=== PATIENT | female | born 1970 | race African-American/Black ===

== ENCOUNTER 2016-06-10 00:34 | Emergency (ER) | payer BC, OTHER ==
[~2016-06-10] VITALS: Ht 162.6 cm; Wt 88.9 kg
[~2016-06-10 00:34] MED LIST: CIPR500T94 PO; DICL100G7 TP; DICY20TA30 PO; HYDR-2762 PO; NAPR500T PO; TRAM-29 PO
[2016-06-10 02:17] LABS: BASO % 1 % (0-3); EOS % 3 % (0-3); HEMATOCRIT 38.9 % (36.0-47.0); HEMOGLOBIN 12.7 g/dL (12.0-15.5); LYMPH # 2.3 x10^3/uL (1.0-4.8); LYMPH % 39 % (24-48); MEAN CORPUSCULAR HEMOGLOBIN 30 pg (25-35); MEAN CORPUSCULAR HGB CONC 33 g/dL (31-37); MEAN CORPUSCULAR VOLUME 92 fL (79-100); MONO % 13 % (0-9); NEUT % 44 % (31-73); PLATELET COUNT 217 x10^3/uL (140-400); RED BLOOD COUNT 4.25 x10^6/uL (3.50-5.40); RED CELL DISTRIBUTION WIDTH 13.1 % (11.5-14.5); WHITE BLOOD COUNT 5.9 x10^3/uL (4.0-11.0)
[2016-06-10 02:19] LABS: CALCIUM 9.4 mg/dL (8.5-10.1); CREATININE 0.8 mg/dL (0.6-1.0); GFR 94.3; MAGNESIUM 1.7 mg/dL (1.8-2.4); POTASSIUM 3.6 mmol/L (3.5-5.1)
[2016-06-10 03:00] VITALS: BP 112/65
--- NOTE | 2016-06-10 03:26 | PHYS DOC ---
Past Medical History Past Medical History: Arthritis Additional Past Medical Histor: Interstitial cystitis, sleep apnea, sarcodosis Past Surgical History: Cholecystectomy, Tubal ligation, Other Additional Past Surgical Histo: cystoscopy Alcohol Use: None Drug Use: None Adult General Chief Complaint Chief Complaint: SHORTNESS OF BREATH HPI HPI Patient is a 45 year old female who presents with palpitations. Patient reports for a while she's had intermittent palpitations, feeling funny in her chest. She also reports falling asleep during the day. Times. She has been diagnosed with sleep apnea was given a CPAP machine. Tonight she used CPAP machine for the first time, and was having difficulty tolerating it because of palpitations. No significant chest pain. No shortness of breath. She has not taken anything for symptoms prior to arrival. Review of Systems Review of Systems Constitutional: Denies fever or chills Eyes: Denies change in visual acuity or eye pain HENT: Denies nasal congestion or sore throat Respiratory: Denies cough or shortness of breath Cardiovascular: Palpitations. Denies chest pain GI: Denies abdominal pain, nausea, vomiting, bloody stools or diarrhea : Denies dysuria or hematuria Musculoskeletal: Denies back pain or joint pain Integument: Denies rash or skin lesions Neurologic: Denies headache, focal weakness or sensory changes Current Medications Current Medications Current Medications Medications (Trade) Dose Ordered Sig/Raul Start Time Stop Time Status Last Admin Dose Admin Magnesium Oxide (Magnesium Oxide) 400 mg 1X ONCE 06/10/16 04:00 06/10/16 04:00 DC 06/10/16 03:39 400 MG Allergies Allergies Allergies Coded Allergies Type Severity Reaction Last Updated Verified No Known Drug Allergies 10/04/15 No Physical Exam Physical Exam Constitutional: Well developed, well nourished, no acute distress, non-toxic appearance HENT: Normocephalic, atraumatic, bilateral external ears normal Eyes: EOMI, conjunctiva normal, no discharge Neck: Normal range of motion, no stridor Cardiovascular: Heart rate normal, regular rhythm, no murmur Lungs & Thorax: Bilateral breath sounds clear to auscultation Abdomen: Bowel sounds normal, soft, non-distended, no TTP Skin: Warm, dry, no erythema, no rash Extremities: No obvious deformity, no edema Neurologic: Alert and oriented X 3, no gross deficits noted Psychologic: Affect normal, judgement normal, mood normal Current Patient Data Vital Signs Vital Signs Date Time Temp Pulse Resp B/P Pulse Ox O2 Delivery O2 Flow Rate FiO2 06/10/16 03:43 06/10/16 03:00 72 16 100 Room Air 06/10/16 00:43 97.7 97.7 Lab Values Laboratory Tests Test 06/10/16 00:58 06/10/16 02:00 POC Urine HCG, Qualitative Hcg negative (Negative) White Blood Count 5.9x10^3/uL (4.0-11.0) Red Blood Count 4.25x10^6/uL (3.50-5.40) Hemoglobin 12.7g/dL (12.0-15.5) Hematocrit 38.9% (36.0-47.0) Mean Corpuscular Volume 92fL (79-100) Mean Corpuscular Hemoglobin 30pg (25-35) Mean Corpuscular Hemoglobin Concent 33g/dL (31-37) Red Cell Distribution Width 13.1% (11.5-14.5) Platelet Count 217x10^3/uL (140-400) Neutrophils (%) (Auto) 44% (31-73) Lymphocytes (%) (Auto) 39% (24-48) Monocytes (%) (Auto) 13% (0-9) H Eosinophils (%) (Auto) 3% (0-3) Basophils (%) (Auto) 1% (0-3) Neutrophils # (Auto) 2.6x10^3uL (1.8-7.7) Lymphocytes # (Auto) 2.3x10^3/uL (1.0-4.8) Monocytes # (Auto) 0.8x10^3/uL (0.0-1.1) Eosinophils # (Auto) 0.2x10^3/uL (0.0-0.7) Basophils # (Auto) 0.0x10^3/uL (0.0-0.2) Sodium Level 144mmol/L (136-145) Potassium Level 3.6mmol/L (3.5-5.1) Chloride Level 105mmol/L (98-107) Carbon Dioxide Level 31mmol/L (21-32) Anion Gap 8 (6-14) Blood Urea Nitrogen 17mg/dL (7-20) Creatinine 0.8mg/dL (0.6-1.0) Estimated GFR (Cockcroft-Gault) 94.3 Glucose Level 108mg/dL (70-99) H Calcium Level 9.4mg/dL (8.5-10.1) Magnesium Level 1.7mg/dL (1.8-2.4) L Troponin I Quantitative < 0.017ng/mL (0.000-0.055) Thyroid Stimulating Hormone (TSH) 4.087uIU/mL (0.358-3.74) H Laboratory Tests 06/10/16 02:00 Laboratory Tests 06/10/16 02:00 EKG EKG EKG (my read): sinus rhythm, rate 61, normal axis, intervals wnl, no acute ST/T changes Radiology/Procedures Radiology/Procedures CXR (my read): No significant change from prior Course & Med Decision Making Course & Med Decision Making Pertinent Labs and Imaging studies reviewed. (See chart for details) Patient is 45-year-old female who presents with palpitations after using CPAP machine for the first time. Will obtain EKG, chest x-ray, labs to evaluate. EKG and imaging results as above. Labs notable for minimally low magnesium, as well as mildly elevated TSH. Oral magnesium replacement ordered. Discussed results with patient, as well as importance of following up with PCP discussed CPAP as well as thyroid function. We'll discharge home with instructions for follow-up and return precautions. Dragon Disclaimer Dragon Disclaimer This electronic medical record was generated, in whole or in part, using a voice recognition dictation system. Departure Departure Impression: Primary Impression: Palpitations Additional Impression: Sleep apnea Disposition: 01 HOME, SELF-CARE Condition: STABLE Referrals: TABBY LOVE (PCP) Patient Instructions: Palpitations, Sleep Apnea Additional Instructions: Thank you for allowing us to provide care today in the Emergency Department. Continue to wear your CPAP machine while you are sleeping at night. Schedule a follow up appointment with your primary care doctor to discuss your CPAP and your thyroid function. Return promptly to the Emergency Department if you develop any new or concerning symptoms. Problem Qualifiers HOWIE BURNETT MD Jun 10, 2016 03:26
[2016-06-10] MEDS ORDERED: MAGNESIUM OXIDE 400 MG TABLET PO ONE (04:00)
--- NOTE | 2016-06-10 07:40 | RAD ---
EXAM: Chest, 2 views. HISTORY: Palpitations. COMPARISON: 10/23/2015. FINDINGS: Frontal and lateral views of the chest are obtained. There is no infiltrate, effusion or pneumothorax. The heart is normal in size. There is stable hilar prominence likely due to prominent central pulmonary vascular shadows. IMPRESSION: No acute pulmonary finding.
--- NOTE | 2016-06-10 09:18 | EKG ---
[facility] [address] [place] [address] Test Date: 2016-06-10 Test Time: 01:01:01 Pat Name: MARISSA MERINO Department: Room: Gender: F [employer]: : 1970 Requested By: HOWIE BURNETT Order Number: [id number] Reading MD: Ashley Patrick Measurements Intervals [place] Rate: 61 P: 51 PA: 206 QRS: 45 QRSD: 78 T: 28 QT: 412 QTc: 416 Interpretive Statements SINUS RHYTHM NON SPECIFIC ST T WaVE CHANGES RI6.01 No previous ECG available for comparison Electronically Signed On 06-11-2016 19:09:09 CDT by Ashley Patrick
== END 2016-06-10 03:45 | disposition home or self-care (01) ==
LOC: ER 00:34
DX: R00.2 Palpitations (principal); G47.30 Sleep apnea, unspecified
CPT/HCPCS: 36415; 71020; 80048; 81025; 83735; 84443; 84484; 85027; 93005; 99285-25